=== PATIENT | male | born 1965 | race Two or more races ===

== ENCOUNTER 2019-12-09 09:54 | Outpatient (CLI) | payer MEDICARE, MEDICAID | END 2019-12-09 23:59 | disposition home or self-care (01) | LOC: MSC 09:54 | PROVIDERS: ATTEND Internal Medicine | DX: E11.22 Type 2 diabetes mellitus with diabetic chronic kidney disease (principal); I12.0 Hypertensive chronic kidney disease with stage 5 chronic kidney disease or end stage renal disease; N18.6 End stage renal disease; Z99.2 Dependence on renal dialysis; Z79.4 Long term (current) use of insulin; E11.42 Type 2 diabetes mellitus with diabetic polyneuropathy; N52.9 Male erectile dysfunction, unspecified; E66.9 Obesity, unspecified; S91.001D Unspecified open wound, right ankle, subsequent encounter; Z79.899 Other long term (current) drug therapy ==

== ENCOUNTER 2019-12-09 10:37 | Outpatient (CLI) | payer MEDICARE, MEDICAID ==
[2019-12-09] MEDS ORDERED: SILVER SULFADIAZINE CREAM 25 GM TUBE ONE (10:58)
== END 2019-12-09 23:59 | disposition home or self-care (01) ==
LOC: WOU 10:37
PROVIDERS: ATTEND Specialist
DX: S61.313A Laceration without foreign body of left middle finger with damage to nail, initial encounter (principal); X58.XXXA Exposure to other specified factors, initial encounter; Y92.89 Other specified places as the place of occurrence of the external cause; I12.0 Hypertensive chronic kidney disease with stage 5 chronic kidney disease or end stage renal disease; E11.22 Type 2 diabetes mellitus with diabetic chronic kidney disease; N18.6 End stage renal disease; Z99.2 Dependence on renal dialysis
CPT/HCPCS: G0463

== ENCOUNTER → 2020-11-03 | Outpatient (CLI) | payer MEDICARE, OTHER | END | disposition home or self-care (01) | LOC: MSC 14:00 | PROVIDERS: ATTEND Internal Medicine | DX: I95.9 Hypotension, unspecified (principal); E11.22 Type 2 diabetes mellitus with diabetic chronic kidney disease; I12.0 Hypertensive chronic kidney disease with stage 5 chronic kidney disease or end stage renal disease; N18.6 End stage renal disease; Z99.2 Dependence on renal dialysis; Z79.4 Long term (current) use of insulin; M54.9 Dorsalgia, unspecified; G62.9 Polyneuropathy, unspecified; N52.9 Male erectile dysfunction, unspecified; E66.9 Obesity, unspecified; S61.305D Unspecified open wound of left ring finger with damage to nail, subsequent encounter; S81.809D Unspecified open wound, unspecified lower leg, subsequent encounter; Z79.82 Long term (current) use of aspirin; Z79.899 Other long term (current) drug therapy ==

== ENCOUNTER → 2020-12-29 | Outpatient (CLI) | payer MEDICARE, OTHER | END | disposition home or self-care (01) | LOC: MSC 14:00 | PROVIDERS: ATTEND Internal Medicine | DX: K13.70 Unspecified lesions of oral mucosa (principal); M54.9 Dorsalgia, unspecified; E11.22 Type 2 diabetes mellitus with diabetic chronic kidney disease; I12.0 Hypertensive chronic kidney disease with stage 5 chronic kidney disease or end stage renal disease; N18.6 End stage renal disease; Z99.2 Dependence on renal dialysis; Z79.4 Long term (current) use of insulin; G62.9 Polyneuropathy, unspecified; N52.9 Male erectile dysfunction, unspecified; E66.9 Obesity, unspecified; S61.305D Unspecified open wound of left ring finger with damage to nail, subsequent encounter; S81.809D Unspecified open wound, unspecified lower leg, subsequent encounter; Z79.82 Long term (current) use of aspirin; Z79.899 Other long term (current) drug therapy ==

== ENCOUNTER 2021-01-12 10:46 | Outpatient (CLI) | payer MEDICARE, OTHER | END 2021-01-12 23:59 | disposition home or self-care (01) | LOC: MSC 10:46 | PROVIDERS: ATTEND Internal Medicine | DX: L89.321 Pressure ulcer of left buttock, stage 1 (principal); K13.70 Unspecified lesions of oral mucosa; M54.9 Dorsalgia, unspecified; E11.22 Type 2 diabetes mellitus with diabetic chronic kidney disease; I12.0 Hypertensive chronic kidney disease with stage 5 chronic kidney disease or end stage renal disease; N18.6 End stage renal disease; Z99.2 Dependence on renal dialysis; Z79.4 Long term (current) use of insulin; G62.9 Polyneuropathy, unspecified; N52.9 Male erectile dysfunction, unspecified; E66.9 Obesity, unspecified; Z68.32 Body mass index [BMI] 32.0-32.9, adult; S81.809D Unspecified open wound, unspecified lower leg, subsequent encounter; Z79.01 Long term (current) use of anticoagulants; Z79.899 Other long term (current) drug therapy ==

== ENCOUNTER → 2021-01-17 | Outpatient (CLI) | payer MEDICARE, OTHER | END | disposition home or self-care (01) | LOC: MSC 15:00 | PROVIDERS: ATTEND Internal Medicine | DX: E11.22 Type 2 diabetes mellitus with diabetic chronic kidney disease (principal); I12.0 Hypertensive chronic kidney disease with stage 5 chronic kidney disease or end stage renal disease; N18.6 End stage renal disease; Z99.2 Dependence on renal dialysis; Z79.4 Long term (current) use of insulin; L89.321 Pressure ulcer of left buttock, stage 1; M54.9 Dorsalgia, unspecified; G62.9 Polyneuropathy, unspecified; N52.9 Male erectile dysfunction, unspecified; E66.9 Obesity, unspecified; S81.809D Unspecified open wound, unspecified lower leg, subsequent encounter; Z79.01 Long term (current) use of anticoagulants; Z79.82 Long term (current) use of aspirin; Z79.899 Other long term (current) drug therapy ==

== ENCOUNTER 2021-03-23 10:00 | Outpatient (CLI) | payer MEDICARE, OTHER | END 2021-03-23 23:59 | disposition home or self-care (01) | LOC: MSC 10:00 | PROVIDERS: ATTEND Internal Medicine | DX: Z51.89 Encounter for other specified aftercare (principal); W19.XXXA Unspecified fall, initial encounter; I12.0 Hypertensive chronic kidney disease with stage 5 chronic kidney disease or end stage renal disease; E11.22 Type 2 diabetes mellitus with diabetic chronic kidney disease; N18.6 End stage renal disease; Z99.2 Dependence on renal dialysis; Z79.4 Long term (current) use of insulin; E11.42 Type 2 diabetes mellitus with diabetic polyneuropathy; L89.321 Pressure ulcer of left buttock, stage 1; M54.9 Dorsalgia, unspecified; N52.9 Male erectile dysfunction, unspecified; E66.9 Obesity, unspecified; S81.809D Unspecified open wound, unspecified lower leg, subsequent encounter; Z79.01 Long term (current) use of anticoagulants; Z79.82 Long term (current) use of aspirin; Z79.899 Other long term (current) drug therapy ==

== ENCOUNTER → 2021-04-04 | Outpatient (CLI) | payer MEDICARE, OTHER | END | disposition home or self-care (01) | LOC: MSC 15:30 | PROVIDERS: ATTEND Internal Medicine | DX: I12.0 Hypertensive chronic kidney disease with stage 5 chronic kidney disease or end stage renal disease (principal); E11.22 Type 2 diabetes mellitus with diabetic chronic kidney disease; N18.6 End stage renal disease; Z99.2 Dependence on renal dialysis; Z79.4 Long term (current) use of insulin; E11.42 Type 2 diabetes mellitus with diabetic polyneuropathy; L89.321 Pressure ulcer of left buttock, stage 1; M54.9 Dorsalgia, unspecified; N52.9 Male erectile dysfunction, unspecified; E66.9 Obesity, unspecified; S81.809D Unspecified open wound, unspecified lower leg, subsequent encounter; Z76.0 Encounter for issue of repeat prescription; Z79.01 Long term (current) use of anticoagulants; Z79.82 Long term (current) use of aspirin; Z79.899 Other long term (current) drug therapy ==

== ENCOUNTER → 2021-05-31 | Outpatient (CLI) | payer MEDICARE, OTHER | END | disposition home or self-care (01) | LOC: MSC 14:30 | PROVIDERS: ATTEND Internal Medicine | DX: E11.22 Type 2 diabetes mellitus with diabetic chronic kidney disease (principal); I12.0 Hypertensive chronic kidney disease with stage 5 chronic kidney disease or end stage renal disease; N18.6 End stage renal disease; Z99.2 Dependence on renal dialysis; Z79.4 Long term (current) use of insulin; E11.42 Type 2 diabetes mellitus with diabetic polyneuropathy; Z91.81 History of falling; L89.321 Pressure ulcer of left buttock, stage 1; M54.9 Dorsalgia, unspecified; N52.9 Male erectile dysfunction, unspecified; E66.9 Obesity, unspecified; S81.809D Unspecified open wound, unspecified lower leg, subsequent encounter ==

== ENCOUNTER 2021-06-21 14:00 | Outpatient (CLI) | payer MEDICARE, OTHER | END 2021-06-21 23:59 | disposition home or self-care (01) | LOC: MSC 14:00 | PROVIDERS: ATTEND Internal Medicine | DX: L29.9 Pruritus, unspecified (principal); E11.22 Type 2 diabetes mellitus with diabetic chronic kidney disease; I12.0 Hypertensive chronic kidney disease with stage 5 chronic kidney disease or end stage renal disease; N18.6 End stage renal disease; Z99.2 Dependence on renal dialysis; Z79.4 Long term (current) use of insulin; E11.42 Type 2 diabetes mellitus with diabetic polyneuropathy; L89.321 Pressure ulcer of left buttock, stage 1; M54.9 Dorsalgia, unspecified; N52.9 Male erectile dysfunction, unspecified; E66.9 Obesity, unspecified; S81.809D Unspecified open wound, unspecified lower leg, subsequent encounter; Z91.81 History of falling; Z79.899 Other long term (current) drug therapy ==

== ENCOUNTER → 2021-07-14 | Outpatient (CLI) | payer MEDICARE, OTHER | END | disposition home or self-care (01) | LOC: MSC 15:00 | PROVIDERS: ATTEND Internal Medicine | DX: M65.332 Trigger finger, left middle finger (principal); L29.9 Pruritus, unspecified; E11.22 Type 2 diabetes mellitus with diabetic chronic kidney disease; I12.0 Hypertensive chronic kidney disease with stage 5 chronic kidney disease or end stage renal disease; N18.6 End stage renal disease; Z99.2 Dependence on renal dialysis; Z79.4 Long term (current) use of insulin; E11.42 Type 2 diabetes mellitus with diabetic polyneuropathy; L89.321 Pressure ulcer of left buttock, stage 1; M54.9 Dorsalgia, unspecified; N52.9 Male erectile dysfunction, unspecified; E66.9 Obesity, unspecified; S81.809D Unspecified open wound, unspecified lower leg, subsequent encounter; Z91.81 History of falling; Z79.899 Other long term (current) drug therapy ==

== ENCOUNTER → 2021-09-05 | Outpatient (CLI) | payer MEDICARE, OTHER | END | disposition home or self-care (01) | LOC: MSC 09:45 | PROVIDERS: ATTEND Internal Medicine | DX: J06.9 Acute upper respiratory infection, unspecified (principal); M65.332 Trigger finger, left middle finger; L29.9 Pruritus, unspecified; E11.22 Type 2 diabetes mellitus with diabetic chronic kidney disease; I12.0 Hypertensive chronic kidney disease with stage 5 chronic kidney disease or end stage renal disease; N18.6 End stage renal disease; Z99.2 Dependence on renal dialysis; Z79.4 Long term (current) use of insulin; E11.42 Type 2 diabetes mellitus with diabetic polyneuropathy; L89.321 Pressure ulcer of left buttock, stage 1; M54.9 Dorsalgia, unspecified; N52.9 Male erectile dysfunction, unspecified; E66.9 Obesity, unspecified; S81.809D Unspecified open wound, unspecified lower leg, subsequent encounter; Z91.81 History of falling; Z79.899 Other long term (current) drug therapy ==

== ENCOUNTER 2021-12-07 15:00 | Outpatient (CLI) | payer MEDICARE, OTHER | END 2021-12-07 23:59 | disposition home or self-care (01) | LOC: MSC 15:00 | PROVIDERS: ATTEND Internal Medicine | DX: E11.22 Type 2 diabetes mellitus with diabetic chronic kidney disease (principal); I12.0 Hypertensive chronic kidney disease with stage 5 chronic kidney disease or end stage renal disease; N18.6 End stage renal disease; Z99.2 Dependence on renal dialysis; Z79.4 Long term (current) use of insulin; Z79.899 Other long term (current) drug therapy; E11.42 Type 2 diabetes mellitus with diabetic polyneuropathy; J06.9 Acute upper respiratory infection, unspecified; M65.332 Trigger finger, left middle finger; L29.9 Pruritus, unspecified; L89.321 Pressure ulcer of left buttock, stage 1; M54.9 Dorsalgia, unspecified; N52.9 Male erectile dysfunction, unspecified; E66.9 Obesity, unspecified; S81.809D Unspecified open wound, unspecified lower leg, subsequent encounter; Z91.81 History of falling ==

== ENCOUNTER 2022-01-09 15:00 | Outpatient (CLI) | payer MEDICARE, OTHER | END 2022-01-09 23:59 | disposition home or self-care (01) | LOC: MSC 15:00 | PROVIDERS: ATTEND Internal Medicine | DX: Z51.89 Encounter for other specified aftercare (principal); E11.22 Type 2 diabetes mellitus with diabetic chronic kidney disease; I12.0 Hypertensive chronic kidney disease with stage 5 chronic kidney disease or end stage renal disease; N18.6 End stage renal disease; Z99.2 Dependence on renal dialysis; Z79.4 Long term (current) use of insulin; Z79.899 Other long term (current) drug therapy; E11.42 Type 2 diabetes mellitus with diabetic polyneuropathy; J06.9 Acute upper respiratory infection, unspecified; M65.332 Trigger finger, left middle finger; L29.9 Pruritus, unspecified; L89.321 Pressure ulcer of left buttock, stage 1; M54.9 Dorsalgia, unspecified; N52.9 Male erectile dysfunction, unspecified; E66.9 Obesity, unspecified; S81.809D Unspecified open wound, unspecified lower leg, subsequent encounter; Z91.81 History of falling ==

== ENCOUNTER → 2022-04-25 | Outpatient (CLI) | payer MEDICARE, OTHER | END | disposition home or self-care (01) | LOC: MSC 14:30 | PROVIDERS: ATTEND Internal Medicine | DX: E11.22 Type 2 diabetes mellitus with diabetic chronic kidney disease (principal); I12.0 Hypertensive chronic kidney disease with stage 5 chronic kidney disease or end stage renal disease; N18.6 End stage renal disease; Z99.2 Dependence on renal dialysis; Z79.4 Long term (current) use of insulin; E11.42 Type 2 diabetes mellitus with diabetic polyneuropathy; M65.332 Trigger finger, left middle finger; L29.9 Pruritus, unspecified; L89.321 Pressure ulcer of left buttock, stage 1; M54.9 Dorsalgia, unspecified; N52.9 Male erectile dysfunction, unspecified; E66.9 Obesity, unspecified; S81.809D Unspecified open wound, unspecified lower leg, subsequent encounter ==

== ENCOUNTER → 2022-06-08 | Outpatient (CLI) | payer MEDICARE, OTHER | END | disposition home or self-care (01) | LOC: MSC 15:00 | PROVIDERS: ATTEND Internal Medicine | DX: K02.9 Dental caries, unspecified (principal); G47.00 Insomnia, unspecified; E11.22 Type 2 diabetes mellitus with diabetic chronic kidney disease; I12.0 Hypertensive chronic kidney disease with stage 5 chronic kidney disease or end stage renal disease; N18.6 End stage renal disease; Z99.2 Dependence on renal dialysis; Z79.4 Long term (current) use of insulin; E11.42 Type 2 diabetes mellitus with diabetic polyneuropathy; M65.332 Trigger finger, left middle finger; L29.9 Pruritus, unspecified; L89.321 Pressure ulcer of left buttock, stage 1; M54.9 Dorsalgia, unspecified; N52.9 Male erectile dysfunction, unspecified; E66.9 Obesity, unspecified; S81.809D Unspecified open wound, unspecified lower leg, subsequent encounter ==

== ENCOUNTER → 2022-06-29 | Outpatient (CLI) | payer MEDICARE, OTHER | END | disposition home or self-care (01) | LOC: MSC 15:30 | PROVIDERS: ATTEND Internal Medicine | DX: K92.0 Hematemesis (principal); G47.00 Insomnia, unspecified; E11.22 Type 2 diabetes mellitus with diabetic chronic kidney disease; I12.0 Hypertensive chronic kidney disease with stage 5 chronic kidney disease or end stage renal disease; N18.6 End stage renal disease; Z99.2 Dependence on renal dialysis; Z79.4 Long term (current) use of insulin; E11.42 Type 2 diabetes mellitus with diabetic polyneuropathy; L89.321 Pressure ulcer of left buttock, stage 1; N52.9 Male erectile dysfunction, unspecified; E66.9 Obesity, unspecified; S81.809D Unspecified open wound, unspecified lower leg, subsequent encounter ==

== ENCOUNTER → 2022-07-06 | Outpatient (CLI) | payer MEDICARE, OTHER | END | disposition home or self-care (01) | LOC: MSC 16:00 | PROVIDERS: ATTEND Internal Medicine | DX: M25.561 Pain in right knee (principal); R05.3 Chronic cough; N52.9 Male erectile dysfunction, unspecified; K92.0 Hematemesis; G47.00 Insomnia, unspecified; E11.22 Type 2 diabetes mellitus with diabetic chronic kidney disease; I12.0 Hypertensive chronic kidney disease with stage 5 chronic kidney disease or end stage renal disease; N18.6 End stage renal disease; Z99.2 Dependence on renal dialysis; Z79.4 Long term (current) use of insulin; E11.42 Type 2 diabetes mellitus with diabetic polyneuropathy; L89.321 Pressure ulcer of left buttock, stage 1; E66.9 Obesity, unspecified ==

== ENCOUNTER → 2022-08-23 | Outpatient (CLI) | payer MEDICARE, OTHER | END | disposition home or self-care (01) | LOC: MSC 15:15 | PROVIDERS: ATTEND Internal Medicine | DX: H10.89 Other conjunctivitis (principal); B35.4 Tinea corporis; R06.02 Shortness of breath; R05.3 Chronic cough; K92.0 Hematemesis; G47.00 Insomnia, unspecified; E11.22 Type 2 diabetes mellitus with diabetic chronic kidney disease; I12.0 Hypertensive chronic kidney disease with stage 5 chronic kidney disease or end stage renal disease; N18.6 End stage renal disease; Z99.2 Dependence on renal dialysis; Z79.4 Long term (current) use of insulin; E11.42 Type 2 diabetes mellitus with diabetic polyneuropathy; L89.321 Pressure ulcer of left buttock, stage 1; E66.9 Obesity, unspecified; N52.9 Male erectile dysfunction, unspecified ==

== ENCOUNTER 2022-08-28 11:15 | Outpatient (CLI) | payer MEDICARE, OTHER | END 2022-08-28 23:59 | disposition home or self-care (01) | LOC: MSC 11:15 | PROVIDERS: ATTEND Internal Medicine | DX: R05.3 Chronic cough (principal); H10.89 Other conjunctivitis; B35.4 Tinea corporis; M25.561 Pain in right knee; R06.02 Shortness of breath; K92.0 Hematemesis; G47.00 Insomnia, unspecified; E11.22 Type 2 diabetes mellitus with diabetic chronic kidney disease; I12.0 Hypertensive chronic kidney disease with stage 5 chronic kidney disease or end stage renal disease; N18.6 End stage renal disease; Z99.2 Dependence on renal dialysis; Z79.4 Long term (current) use of insulin; E11.42 Type 2 diabetes mellitus with diabetic polyneuropathy; L89.321 Pressure ulcer of left buttock, stage 1; E66.9 Obesity, unspecified; N52.9 Male erectile dysfunction, unspecified ==

== ENCOUNTER 2022-09-06 11:06 | Outpatient (CLI) | payer MEDICARE, OTHER | END 2022-09-06 23:59 | disposition home or self-care (01) | LOC: CT 11:06 | PROVIDERS: ATTEND Internal Medicine | DX: R05.9 Cough, unspecified (principal); K80.80 Other cholelithiasis without obstruction | CPT/HCPCS: 71250-TC ==

== ENCOUNTER → 2022-09-07 | Outpatient (CLI) | payer MEDICARE, OTHER | END | disposition home or self-care (01) | LOC: MSC 14:00 | PROVIDERS: ATTEND Internal Medicine | DX: R05.3 Chronic cough (principal); H10.89 Other conjunctivitis; B35.4 Tinea corporis; R06.02 Shortness of breath; K92.0 Hematemesis; G47.00 Insomnia, unspecified; E11.22 Type 2 diabetes mellitus with diabetic chronic kidney disease; I12.0 Hypertensive chronic kidney disease with stage 5 chronic kidney disease or end stage renal disease; N18.6 End stage renal disease; Z99.2 Dependence on renal dialysis; Z79.4 Long term (current) use of insulin; E11.42 Type 2 diabetes mellitus with diabetic polyneuropathy; L89.321 Pressure ulcer of left buttock, stage 1; E66.9 Obesity, unspecified; N52.9 Male erectile dysfunction, unspecified ==

== ENCOUNTER 2022-10-24 14:00 | Outpatient (CLI) | payer MEDICARE, OTHER | END 2022-10-24 23:59 | disposition home or self-care (01) | LOC: MSC 14:00 | PROVIDERS: ATTEND Internal Medicine | DX: L53.9 Erythematous condition, unspecified (principal); R05.3 Chronic cough; H10.89 Other conjunctivitis; B35.4 Tinea corporis; R06.02 Shortness of breath; K92.0 Hematemesis; K02.9 Dental caries, unspecified; G47.00 Insomnia, unspecified; E11.22 Type 2 diabetes mellitus with diabetic chronic kidney disease; I12.0 Hypertensive chronic kidney disease with stage 5 chronic kidney disease or end stage renal disease; N18.6 End stage renal disease; Z99.2 Dependence on renal dialysis; Z79.4 Long term (current) use of insulin; E11.42 Type 2 diabetes mellitus with diabetic polyneuropathy; L89.321 Pressure ulcer of left buttock, stage 1; N52.9 Male erectile dysfunction, unspecified; E66.9 Obesity, unspecified ==

== ENCOUNTER 2022-11-29 14:15 | Outpatient (CLI) | payer MEDICARE, OTHER | END 2022-11-29 23:59 | disposition home or self-care (01) | LOC: MSC 14:15 | PROVIDERS: ATTEND Internal Medicine | DX: J06.9 Acute upper respiratory infection, unspecified (principal); R05.3 Chronic cough; I16.0 Hypertensive urgency; H10.89 Other conjunctivitis; E11.22 Type 2 diabetes mellitus with diabetic chronic kidney disease; I12.0 Hypertensive chronic kidney disease with stage 5 chronic kidney disease or end stage renal disease; N18.6 End stage renal disease; Z99.2 Dependence on renal dialysis; Z79.4 Long term (current) use of insulin; E11.42 Type 2 diabetes mellitus with diabetic polyneuropathy; B35.4 Tinea corporis; R06.02 Shortness of breath; K92.0 Hematemesis; K02.9 Dental caries, unspecified; G47.00 Insomnia, unspecified; L89.321 Pressure ulcer of left buttock, stage 1; N52.9 Male erectile dysfunction, unspecified; E66.9 Obesity, unspecified ==

== ENCOUNTER 2022-12-19 15:00 | Outpatient (CLI) | payer MEDICARE, OTHER | END 2022-12-19 23:59 | disposition home or self-care (01) | LOC: MSC 15:00 | PROVIDERS: ATTEND Internal Medicine | DX: J06.9 Acute upper respiratory infection, unspecified (principal); R05.3 Chronic cough; I16.0 Hypertensive urgency; H10.89 Other conjunctivitis; E11.22 Type 2 diabetes mellitus with diabetic chronic kidney disease; I12.0 Hypertensive chronic kidney disease with stage 5 chronic kidney disease or end stage renal disease; N18.6 End stage renal disease; Z99.2 Dependence on renal dialysis; Z79.4 Long term (current) use of insulin; E11.42 Type 2 diabetes mellitus with diabetic polyneuropathy; B35.4 Tinea corporis; R06.02 Shortness of breath; K92.0 Hematemesis; K02.9 Dental caries, unspecified; G47.00 Insomnia, unspecified; L89.321 Pressure ulcer of left buttock, stage 1; N52.9 Male erectile dysfunction, unspecified; E66.9 Obesity, unspecified ==

== ENCOUNTER 2023-12-16 10:44 | Inpatient (IN) | payer MEDICARE, OTHER ==
[~2023-12-16] VITALS: Ht 195.6 cm; Wt 140.6 kg
[2023-12-16] VITALS (8 sets, daily range): BP systolic 113–144; BP diastolic 64–89; TEMP 97.9–99.7; O2SAT 93–100
[2023-12-16] MEDS ORDERED: ALBUTEROL FS 2.5 MG/0.5 ML VIAL.NEB NEB PRN (12:00)
[2023-12-16] MEDS ORDERED: CARV3.122 PO (12:03)
[2023-12-16] MEDS ORDERED: OMEP40CA21 PO (12:03)
[2023-12-16] MEDS ORDERED: LISI20TA30 PO (12:03)
[2023-12-16] MEDS ORDERED: NIFE60TA73 PO (12:03)
[2023-12-16] MEDS ORDERED: SUCR1TAB PO (12:03)
[2023-12-16] MEDS ORDERED: INSU100V SQ (12:03)
[2023-12-16] MEDS ORDERED: INSU100V7 SQ (12:03)
[2023-12-16 13:01] LABS: BILIRUBIN,TOTAL 1.3 mg/dL (0.2-1.0); CALCIUM, SERUM 9.5 mg/dL (8.5-10.1); POTASSIUM 4.1 mmol/L (3.5-5.1); TOTAL PROTEIN, SERUM 6.9 g/dL (6.4-8.2)
[2023-12-16] MEDS: AZITHROMYCIN 500 MG in IV D5W 250 ML IV SCH (13:01)
[2023-12-16] MEDS: ALBUTEROL FS 2.5 MG/3 ML VIAL.NEB NEB SCH (13:17)
[2023-12-16 13:24] LABS: BASOPHILS % (AUTO) 0.4 % (0.0-2.0); EOSINOPHILS % (AUTO) 0.5 % (0.0-6.0); HEMATOCRIT 27 % (39-51); HEMOGLOBIN 9.1 g/dL (13.5-17.5); LYMPHOCYTES # (AUTO) 0.1 K/uL (0.8-4.8); LYMPHOCYTES % (AUTO) 1.2 % (20.0-44.0); MEAN CORPUSCULAR HEMOGLOBIN 31 PG (26.0-33.0); MEAN CORPUSCULAR HGB CONC 33 g/dl (31.0-36.0); MEAN CORPUSCULAR VOLUME 93 fL (80-96); MONOCYTES # (AUTO) 0.1 K/uL (0.1-1.30); NEUTROPHILS # (AUTO) 8.9 K/uL (1.8-8.9); NEUTROPHILS % (AUTO) 96.9 % (43.0-81.0); PLATELET COUNT (AUTO) 137 K/uL (150-450); RED BLOOD CELL COUNT(AUTO) 2.92 MIL/uL (4.5-6.0); RED CELL DISTRIBUTION WIDTH 17.8 % (11.5-15.0); WHITE BLOOD COUNT (AUTO) 9.1 K/uL (4.3-11.0)
[2023-12-16 13:42] LABS: CREATININE 7.8 mg/dL (0.6-1.3)
[2023-12-16] MEDS: CEFTRIAXONE 1 G in IV D5W 50 ML IV SCH (16:26)
[2023-12-16] MEDS: INSULIN REGULAR, HUMAN 100 UNIT/ML 3 ML VIAL SQ PRN (18:26)
[2023-12-16] MEDS: BLOOD SUGAR DIAGNOSTIC 1 EACH STRIP VI SCH (18:26)
[2023-12-16] MEDS: IPRATROPIUM NEB FS 0.5 MG/2.5 ML AMPUL.NEB IH SCH (20:01)
[2023-12-16] MEDS: ACETAMINOPHEN 325 MG TABLET PO PRN (20:41)
[2023-12-16] MEDS: HEPARIN SODIUM, PORCINE 5000 UNITS/1 ML VIAL SQ SCH (20:42)
[2023-12-16] MEDS: *INSULIN REGULAR(HUMULIN R)HUM 100 UNIT/ML VIAL SQ PRN (22:32)
[2023-12-16] MEDS: MORPHINE SULFATE INJ 2 MG/ML DISP.SYRIN IV PRN (23:11)
[2023-12-17] VITALS (14 sets, daily range): BP systolic 96–143; BP diastolic 62–97; TEMP 97.5–98.5; O2SAT 96–100
[2023-12-17 07:06] LABS: BASOPHILS # (AUTO) 0.1 K/uL (0.0-0.2); BASOPHILS % (AUTO) 0.7 % (0.0-2.0); EOSINOPHILS # (AUTO) 0.2 K/uL (0.0-0.7); EOSINOPHILS % (AUTO) 1.5 % (0.0-6.0); HEMATOCRIT 26 % (39-51); HEMOGLOBIN 8.6 g/dL (13.5-17.5); LYMPHOCYTES # (AUTO) 0.6 K/uL (0.8-4.8); LYMPHOCYTES % (AUTO) 5.7 % (20.0-44.0); MEAN CORPUSCULAR HEMOGLOBIN 31 PG (26.0-33.0); MEAN CORPUSCULAR HGB CONC 33 g/dl (31.0-36.0); MEAN CORPUSCULAR VOLUME 93 fL (80-96); MONOCYTES # (AUTO) 0.6 K/uL (0.1-1.30); MONOCYTES % (AUTO) 5.9 % (2.0-12.0); NEUTROPHILS # (AUTO) 9.4 K/uL (1.8-8.9); NEUTROPHILS % (AUTO) 86.2 % (43.0-81.0); PLATELET COUNT (AUTO) 138 K/uL (150-450); RED BLOOD CELL COUNT(AUTO) 2.79 MIL/uL (4.5-6.0); RED CELL DISTRIBUTION WIDTH 17.8 % (11.5-15.0); WHITE BLOOD COUNT (AUTO) 10.9 K/uL (4.3-11.0)
[2023-12-17 08:10] LABS: ALBUMIN 3.1 g/dL (3.4-5.0); BILIRUBIN,TOTAL 0.9 mg/dL (0.2-1.0); CALCIUM, SERUM 9.1 mg/dL (8.5-10.1); CREATININE 6.7 mg/dL (0.6-1.3); MAGNESIUM 2.4 mg/dL (1.8-2.4); PHOSPHORUS 3.7 mg/dL (2.5-4.9); POTASSIUM 3.9 mmol/L (3.5-5.1); TOTAL PROTEIN, SERUM 7.5 g/dL (6.4-8.2)
[2023-12-17] MEDS: MINERAL OIL/PETROL OINT 396 GM JAR TP SCH (09:51)
[2023-12-17] MEDS ORDERED: BARIUM SULFATE 98% 135 ML SUSP.RECON PO ONE (12:17)
[2023-12-18] VITALS (13 sets, daily range): BP systolic 121–165; BP diastolic 91–107; TEMP 97.9–98.1; O2SAT 97–100
[2023-12-18] MEDS: PANTOPRAZOLE 40 MG TABLET.DR PO SCH (08:23)
[2023-12-18 08:34] LABS: BASOPHILS % (AUTO) 0.4 % (0.0-2.0); EOSINOPHILS # (AUTO) 0.1 K/uL (0.0-0.7); EOSINOPHILS % (AUTO) 1.5 % (0.0-6.0); HEMATOCRIT 28 % (39-51); HEMOGLOBIN 9.1 g/dL (13.5-17.5); LYMPHOCYTES # (AUTO) 0.5 K/uL (0.8-4.8); LYMPHOCYTES % (AUTO) 5.2 % (20.0-44.0); MEAN CORPUSCULAR HEMOGLOBIN 31 PG (26.0-33.0); MEAN CORPUSCULAR HGB CONC 33 g/dl (31.0-36.0); MEAN CORPUSCULAR VOLUME 95 fL (80-96); MONOCYTES # (AUTO) 0.9 K/uL (0.1-1.30); MONOCYTES % (AUTO) 10.2 % (2.0-12.0); NEUTROPHILS # (AUTO) 7.2 K/uL (1.8-8.9); NEUTROPHILS % (AUTO) 82.7 % (43.0-81.0); PLATELET COUNT (AUTO) 130 K/uL (150-450); RED BLOOD CELL COUNT(AUTO) 2.96 MIL/uL (4.5-6.0); RED CELL DISTRIBUTION WIDTH 18.7 % (11.5-15.0); WHITE BLOOD COUNT (AUTO) 8.7 K/uL (4.3-11.0)
[2023-12-18 08:55] LABS: CALCIUM, SERUM 9.1 mg/dL (8.5-10.1); CREATININE 7.5 mg/dL (0.6-1.3); MAGNESIUM 2.3 mg/dL (1.8-2.4); PHOSPHORUS 4.4 mg/dL (2.5-4.9); POTASSIUM 4.3 mmol/L (3.5-5.1)
[2023-12-18] MEDS: ONDANSETRON HCL/PF 4 MG/2 ML VIAL IVP PRN (20:04)
[2023-12-19] VITALS (11 sets, daily range): BP systolic 126–165; BP diastolic 72–91; TEMP 97.9–98.2; O2SAT 97–100
[2023-12-19 06:51] LABS: BASOPHILS % (AUTO) 0.4 % (0.0-2.0); EOSINOPHILS # (AUTO) 0.1 K/uL (0.0-0.7); EOSINOPHILS % (AUTO) 1.4 % (0.0-6.0); HEMATOCRIT 27 % (39-51); HEMOGLOBIN 8.7 g/dL (13.5-17.5); LYMPHOCYTES # (AUTO) 0.4 K/uL (0.8-4.8); LYMPHOCYTES % (AUTO) 7.2 % (20.0-44.0); MEAN CORPUSCULAR HEMOGLOBIN 31 PG (26.0-33.0); MEAN CORPUSCULAR HGB CONC 33 g/dl (31.0-36.0); MEAN CORPUSCULAR VOLUME 93 fL (80-96); MONOCYTES # (AUTO) 0.6 K/uL (0.1-1.30); MONOCYTES % (AUTO) 9.4 % (2.0-12.0); NEUTROPHILS % (AUTO) 81.6 % (43.0-81.0); PLATELET COUNT (AUTO) 118 K/uL (150-450); RED BLOOD CELL COUNT(AUTO) 2.85 MIL/uL (4.5-6.0); RED CELL DISTRIBUTION WIDTH 18.5 % (11.5-15.0); WHITE BLOOD COUNT (AUTO) 6.1 K/uL (4.3-11.0)
[2023-12-19 07:22] LABS: CALCIUM, SERUM 8.7 mg/dL (8.5-10.1); CREATININE 6.6 mg/dL (0.6-1.3); MAGNESIUM 2.1 mg/dL (1.8-2.4); PHOSPHORUS 3.9 mg/dL (2.5-4.9); POTASSIUM 4.1 mmol/L (3.5-5.1)
[2023-12-19] MEDS: DEXTROSE 50%-WATER 50 ML DISP.SYRIN IV PRN (07:42)
[2023-12-19] MEDS: AZITHROMYCIN 250 MG TABLET PO SCH (12:31)
[2023-12-19] MEDS: hydrALAZINE HCL IV 20 MG VIAL IV PRN (20:49)
[2023-12-20] VITALS (13 sets, daily range): BP systolic 145–170; BP diastolic 82–100; TEMP 98.2–98.4; O2SAT 96–100
[2023-12-21] VITALS (8 sets, daily range): BP systolic 100–167; BP diastolic 70–96; TEMP 97.9–98.4; O2SAT 95–99
[2023-12-21] MEDS: FAMOTIDINE (20 MG) 20 MG TABLET PO ONE (00:55)
[2023-12-21] MEDS ORDERED: FAMOTIDINE (20 MG) 20 MG TABLET PO SCH (09:00)
== END 2023-12-21 16:32 | disposition home or self-care (01) | DRG 202 ==
LOC: TELE1 10:54 → MEDSG1 12-17 13:25
PROVIDERS: ADMIT Internal Medicine; ATTEND Nurse Practitioner Family
PROC: 5A1D70Z Performance of Urinary Filtration, Intermittent, Less than 6 Hours Per Day (ICD-10-PCS; principal; 2023-12-16)
DX: J21.9 Acute bronchiolitis, unspecified (principal); J96.01 Acute respiratory failure with hypoxia; N18.6 End stage renal disease; E87.1 Hypo-osmolality and hyponatremia; I12.0 Hypertensive chronic kidney disease with stage 5 chronic kidney disease or end stage renal disease; L03.116 Cellulitis of left lower limb; E11.42 Type 2 diabetes mellitus with diabetic polyneuropathy; E11.22 Type 2 diabetes mellitus with diabetic chronic kidney disease; D63.1 Anemia in chronic kidney disease; E11.51 Type 2 diabetes mellitus with diabetic peripheral angiopathy without gangrene; Z99.2 Dependence on renal dialysis; E66.01 Morbid (severe) obesity due to excess calories; E87.6 Hypokalemia; E87.70 Fluid overload, unspecified; M89.8X9 Other specified disorders of bone, unspecified site; R29.6 Repeated falls; N25.0 Renal osteodystrophy; G47.33 Obstructive sleep apnea (adult) (pediatric); S81.802A Unspecified open wound, left lower leg, initial encounter; S81.801A Unspecified open wound, right lower leg, initial encounter; X58.XXXA Exposure to other specified factors, initial encounter; Y93.9 Activity, unspecified; Y92.009 Unspecified place in unspecified non-institutional (private) residence as the place of occurrence of the external cause; Z68.36 Body mass index [BMI] 36.0-36.9, adult; Z79.4 Long term (current) use of insulin; R79.89 Other specified abnormal findings of blood chemistry
CPT/HCPCS: 36415; 71045-TC; 71250-TC; 74230-TC; 80048-TC; 80053-TC; 82962-TC; 83735-TC; 84100-TC; 84484-TC; 85025-TC; 86706; 87340; 90935-TC; 92526; 92611-TC; 93307-TC; 94761-TC; 94799-TC; 97110-TC; 97116-TC; 97530-TC; A4223; G0378; J0360; J0456; J0696; J1644; J1815; J2270; J2405; J7030; J7040; J7060